=== PATIENT | female | born 1945 | race African-American/Black ===

== ENCOUNTER 2023-04-28 18:27 | Inpatient (IN) | payer OTHER, BC ==
[2023-04-28] MEDS ORDERED: ACETAMINOPHEN 1000 MG/100 ML BAG IVPB ONE (20:41)
[2023-04-28] MEDS ORDERED: morphine CARPU-JECT 4 MG/1 ML DISP.SYRIN IVPUSH ONE (20:42)
[2023-04-28] MEDS ORDERED: HEPARIN - 25,000 UNIT in SODIUM CHLORIDE 495 ML IV SCH (21:00)
[2023-04-28] MEDS ORDERED: morphine SULFATE 4 MG/ML VIAL ONE (21:09)
[2023-04-28] MEDS ORDERED: ACETAMINOPHEN INJECTION 100 ML IVPB ONE (21:09)
[2023-04-28 21:11] LABS: BASO % 0.8 % (0-2.0); EOS % 0.2 % (0-4.5); HEMATOCRIT 36.1 % (32.4-45.2); HEMOGLOBIN 11.5 GM/dL (10.7-15.3); LYMPH % 16.1 % (8-40); MCH 26.3 pg (25.7-33.7); MCHC 31.9 g/dl (32.0-36.0); MEAN CELL VOLUME 82.3 fl (80-96); MEAN PLT VOLUME 10.6 fl (7.5-11.1); MONO % 3.8 % (3.8-10.2); NEUT % 79.1 % (42.8-82.8); PLATELET COUNT 240 10^3/uL (134-434); RBC 4.39 M/mm3 (3.60-5.2); RDW 16.2 % (11.6-15.6); WHITE BLOOD COUNT 19.9 K/mm3 (4.0-10.0)
[2023-04-28 21:14] LABS: EPI CELLS 20 /uL (0-25.1); HYALINE CASTS 0 /uL (0-3.1); URINE APPEARANCE Error; URINE BACTERIA 105 /uL (0-1359); URINE BILIRUBIN NEGATIVE (NEGATIVE); URINE COLOR YELLOW; URINE GLUCOSE (UA) TRACE (NEGATIVE); URINE KETONE NEGATIVE (NEGATIVE); URINE LEUK ESTERASE TRACE (NEGATIVE); URINE NITRITE NEGATIVE (NEGATIVE); URINE PROTEIN 3+ (NEGATIVE); URINE RBC 15 /uL (0-23.9); URINE UROBILINOGEN 0.2 mg/dL (0.2-1.0); URINE WBC 99 /uL (0-25.8)
[2023-04-28 21:18] LABS: INR 1.05 (0.83-1.09); PROTHROMBIN TIME (PATIENT) 12.2 SEC (9.7-13.0)
[2023-04-28 21:20] LABS: ACTIVATED PTT 25.6 SECONDS (25.2-36.5)
[2023-04-28 21:30] LABS: POTASSIUM 5.7 mmol/L (3.5-5.1)
[2023-04-28 21:31] LABS: CALCIUM 9.5 mg/dL (8.5-10.1)
[2023-04-28 21:32] LABS: ALBUMIN 3.6 g/dl (3.4-5.0); BLOOD UREA NITROGEN 39.9 mg/dL (7-18)
[2023-04-28 21:37] LABS: BILIRUBIN,TOTAL 0.4 mg/dL (0.2-1); TOT PROT 7.2 g/dl (6.4-8.2)
[2023-04-28] MEDS ORDERED: HEPARIN INFUSION - 25,000 UNITS/500 ML INFUS.BAG IVPB ONE (21:43)
[2023-04-28] MEDS ORDERED: morphine SULFATE 4 MG/ML VIAL IM PRN (23:51)
[2023-04-28] MEDS ORDERED: ACETAMINOPHEN 1000 MG/100 ML BAG IVPB PRN (23:51)
[2023-04-29] MEDS ORDERED: morphine SULFATE 4 MG/ML VIAL IVPUSH PRN (03:54)
[2023-04-29] MEDS: morphine SULFATE 4 MG/ML VIAL IVPUSH PRN ×3 (04:00→21:35)
[2023-04-29 04:04] LABS: INR 1.06 (0.83-1.09); PROTHROMBIN TIME (PATIENT) 12.3 SEC (9.7-13.0)
[2023-04-29 04:07] LABS: ACTIVATED PTT 75.2 SECONDS (25.2-36.5)
[2023-04-29 04:57] LABS: BLOOD UREA NITROGEN 39.2 mg/dL (7-18); CALCIUM 9.6 mg/dL (8.5-10.1); CREATININE 1.9 mg/dL (0.55-1.3); POTASSIUM 4.4 mmol/L (3.5-5.1)
[2023-04-29] MEDS: INSULIN ASPART SLIDING SCALE (NOVOLOG) 1 VIAL SQ SCH ×4 (06:24→21:52)
[2023-04-29 06:43] LABS: HEMATOCRIT 30.6 % (32.4-45.2); HEMOGLOBIN 9.9 GM/dL (10.7-15.3); MCHC 32.5 g/dl (32.0-36.0); MEAN CELL VOLUME 83.1 fl (80-96); MEAN PLT VOLUME 10.7 fl (7.5-11.1); PLATELET COUNT 190 10^3/uL (134-434); RBC 3.68 M/mm3 (3.60-5.2); RDW 15.6 % (11.6-15.6); WHITE BLOOD COUNT 13.5 K/mm3 (4.0-10.0)
[2023-04-29 06:51] LABS: INR 1.11 (0.83-1.09); PROTHROMBIN TIME (PATIENT) 12.9 SEC (9.7-13.0)
[2023-04-29 06:54] LABS: ACTIVATED PTT 90.1 SECONDS (25.2-36.5)
[2023-04-29] MEDS ORDERED: LEVOTHYROXINE NA 100 MCG TABLET (FP) PO SCH (07:00)
[2023-04-29 07:04] LABS: POTASSIUM 3.9 mmol/L (3.5-5.1)
[2023-04-29 07:06] LABS: CALCIUM 8.7 mg/dL (8.5-10.1)
[2023-04-29 07:07] LABS: BLOOD UREA NITROGEN 37.4 mg/dL (7-18)
[2023-04-29 07:10] LABS: CREATININE 1.7 mg/dL (0.55-1.3)
[2023-04-29] MEDS: POLYETHYLENE GLYCOL (HEALTHYLAX) 3350 17 GM PACKET PO SCH ×3 (09:56→21:33)
[2023-04-29] MEDS: NICOTINE 21 MG/24 HOURS TOPICAL PATCH TD SCH ×2 (09:56→10:17)
[2023-04-29] MEDS ORDERED: NIFEdipine E.R 60 MG TABLET PO SCH (10:00)
[2023-04-29] MEDS ORDERED: LOSARTAN POTASSIUM 50 MG TABLET PO SCH (10:00)
[2023-04-29] MEDS ORDERED: ASPIRIN COATED 81 MG TABLET.EC PO SCH (10:00)
[2023-04-29] MEDS ORDERED: CEFTRIAXONE 1 GM in DEXTROSE 5%-WATER - 50 ML IVPB SCH (10:00)
[2023-04-29] MEDS ORDERED: HYDROCHLOROTHIAZIDE 25 MG TABLET (FP) PO SCH ×3 (10:00)
[2023-04-29] MEDS ORDERED: HEPARIN NA (PORCINE) 5,000 UNITS/ML 1ML VIAL ONE (14:33)
[2023-04-29] MEDS ORDERED: MIDAZOLAM HCL 2 MG/2 ML SINGLE DOSE VIAL ONE (16:47)
[2023-04-29] MEDS ORDERED: PROPOFOL 20 ML ONE (16:47)
[2023-04-29] MEDS ORDERED: ceFAZolin SODIUM 1 GM VIAL IVPB ONE (17:35)
[2023-04-29] MEDS ORDERED: LIDOCAINE HCL 1%, 10 MG/ML (20ML VIAL) NR ONE ×2 (17:35)
[2023-04-29] MEDS ORDERED: ONDANSETRON 4 MG/2 ML VIAL ONE (17:41)
[2023-04-29] MEDS ORDERED: LACTATED RINGERS SOLUTION 1,000 ML IV SCH ×2 (19:00→19:01)
[2023-04-29] MEDS ORDERED: ACETAMINOPHEN 1000 MG/100 ML BAG IVPB PRN (19:01)
[2023-04-29] MEDS: ENOXAPARIN NA (PORCINE) 80 MG/0.8 ML DISP.SYRIN SQ SCH ×2 (19:36→20:27)
[2023-04-29] MEDS ORDERED: ATORVASTATIN CA 10 MG TABLET (FP) PO SCH ×2 (22:00)
[2023-04-30] MEDS: INSULIN ASPART SLIDING SCALE (NOVOLOG) 1 VIAL SQ SCH ×3 (06:48→22:21)
[2023-04-30] MEDS: morphine SULFATE 4 MG/ML VIAL IVPUSH PRN ×2 (06:59→21:18)
[2023-04-30] MEDS ORDERED: LEVOTHYROXINE NA 100 MCG TABLET (FP) PO SCH (07:00)
[2023-04-30] MEDS: ENOXAPARIN NA (PORCINE) 80 MG/0.8 ML DISP.SYRIN SQ SCH (09:06)
[2023-04-30] MEDS: POLYETHYLENE GLYCOL (HEALTHYLAX) 3350 17 GM PACKET PO SCH ×2 (09:24→21:20)
[2023-04-30] MEDS ORDERED: ASPIRIN COATED 81 MG TABLET.EC PO SCH (10:00)
[2023-04-30] MEDS ORDERED: HYDROCHLOROTHIAZIDE 25 MG TABLET (FP) PO SCH (10:00)
[2023-04-30] MEDS ORDERED: NIFEdipine E.R 60 MG TABLET PO SCH (10:00)
[2023-04-30] MEDS ORDERED: NICOTINE 21 MG/24 HOURS TOPICAL PATCH TD SCH (10:00)
[2023-04-30] MEDS ORDERED: CEFTRIAXONE 1 GM in DEXTROSE 5%-WATER - 50 ML IVPB SCH (10:00)
[2023-04-30] MEDS ORDERED: LOSARTAN POTASSIUM 50 MG TABLET PO SCH (10:00)
[2023-04-30] MEDS ORDERED: ENOXAPARIN NA (PORCINE) 80 MG/0.8 ML DISP.SYRIN SQ SCH (10:00)
[2023-04-30] MEDS ORDERED: HEPARIN NA (PORCINE) 5,000 UNITS/ML 1ML VIAL SQ ONE (12:10)
[2023-04-30] MEDS ORDERED: HYDROmorphone HCl 2 MG/ML VIAL ONE (12:22)
[2023-04-30] MEDS ORDERED: SUCCINYLCHOLINE CHLORIDE 200 MG/10 ML SYRINGE ONE (12:23)
[2023-04-30] MEDS ORDERED: MIDAZOLAM HCL 2 MG/2 ML SINGLE DOSE VIAL ONE ×2 (12:23→13:09)
[2023-04-30] MEDS ORDERED: HEPARIN NA (PORCINE) 5,000 UNITS/ML 1ML VIAL ONE ×2 (12:26→15:28)
[2023-04-30] MEDS ORDERED: SODIUM CHLORIDE 0.9% P/F 10 ML VIAL IJ ONE ×3 (12:26→15:58)
[2023-04-30] MEDS ORDERED: ceFAZolin SODIUM 1 GM VIAL ONE (12:26)
[2023-04-30] MEDS ORDERED: ceFAZolin SODIUM 1 GM VIAL IVPB ONE (13:15)
[2023-04-30] MEDS ORDERED: ROCURONIUM BROMIDE 50 MG/5 ML SYRINGE ONE ×2 (13:23→15:13)
[2023-04-30] MEDS ORDERED: ESMOLOL HCL 100,000 MCG/10 ML VIAL ONE ×2 (13:27→13:29)
[2023-04-30] MEDS ORDERED: NITROGLYCERIN 50 MG/10 ML VIAL IVPB ONE (13:53)
[2023-04-30] MEDS ORDERED: MAGNESIUM SULF 50% (8.12 MEQ/2 ML-1 GM VIAL) ONE (14:58)
[2023-04-30] MEDS ORDERED: ALBUTEROL SO4 HFA INHALER IH ONE (15:02)
[2023-04-30] MEDS ORDERED: hydrALAZINE HCL 20 MG/ML VIAL ONE (15:57)
[2023-04-30] MEDS ORDERED: SUGAMMADEX SODIUM 200 MG/2 ML VIAL ONE (15:57)
[2023-04-30] MEDS ORDERED: POVIDONE-IODINE OINTMENT 10% - 28.4 GM TUBE ONE (16:08)
[2023-04-30] MEDS ORDERED: ONDANSETRON 4 MG/2 ML VIAL IVPUSH PRN ×2 (16:10→16:36)
[2023-04-30] MEDS ORDERED: PROMETHAZINE HCL 25 MG/1 ML VIAL IVPB PRN ×2 (16:10→16:36)
[2023-04-30] MEDS ORDERED: LACTATED RINGERS SOLUTION 1,000 ML IV SCH ×2 (16:15→16:36)
[2023-04-30] MEDS ORDERED: ACETAMINOPHEN 1000 MG/100 ML BAG IVPB ONE (16:33)
[2023-04-30] MEDS ORDERED: ACETAMINOPHEN INJECTION 100 ML IVPB ONE (17:08)
[2023-04-30] MEDS: APIXABAN 5 MG TABLET PO SCH ×2 (17:54→21:20)
[2023-04-30] MEDS: LACTATED RINGERS SOLUTION 1,000 ML IV SCH (18:33)
[2023-04-30] MEDS: ATORVASTATIN CA 10 MG TABLET (FP) PO SCH (21:19)
[2023-04-30] MEDS ORDERED: MUPIROCIN 2% TOPICAL OINTMENT FOR DECOLONIZATION NS SCH (22:00)
[2023-04-30] MEDS ORDERED: CHLORHEXIDINE GLUCONATE 4% CLEANSER FOR DECOLONIZATION TP SCH (22:00)
[2023-05-01] MEDS ORDERED: morphine SULFATE 4 MG/ML VIAL IVPUSH ONE (00:09)
[2023-05-01] MEDS ORDERED: ACETAMINOPHEN 1000 MG/100 ML BAG IVPB ONE (00:09)
[2023-05-01] MEDS: INSULIN ASPART SLIDING SCALE (NOVOLOG) 1 VIAL SQ SCH ×4 (07:00→22:28)
[2023-05-01] MEDS: INSULIN (LEVEMIR) 100 UNITS/ML UNITS SQ SCH (07:00)
[2023-05-01 07:08] LABS: HEMATOCRIT 27.8 % (32.4-45.2); MCH 27.1 pg (25.7-33.7); MCHC 32.3 g/dl (32.0-36.0); MEAN CELL VOLUME 83.9 fl (80-96); MEAN PLT VOLUME 10.8 fl (7.5-11.1); PLATELET COUNT 165 10^3/uL (134-434); RBC 3.31 M/mm3 (3.60-5.2); RDW 15.8 % (11.6-15.6)
[2023-05-01 07:10] LABS: WHITE BLOOD COUNT 35.2 K/mm3 (4.0-10.0)
[2023-05-01 07:16] LABS: POTASSIUM 4.3 mmol/L (3.5-5.1)
[2023-05-01 07:18] LABS: BLOOD UREA NITROGEN 26.7 mg/dL (7-18); CALCIUM 8.5 mg/dL (8.5-10.1); MAGNESIUM 1.9 mg/dL (1.8-2.4)
[2023-05-01 07:21] LABS: PHOSPHOROUS 4.4 mg/dL (2.5-4.9)
[2023-05-01 07:22] LABS: CREATININE 1.7 mg/dL (0.55-1.3)
[2023-05-01 07:23] LABS: BILIRUBIN,TOTAL 0.7 mg/dL (0.2-1); TOT PROT 5.4 g/dl (6.4-8.2)
[2023-05-01 07:29] LABS: ALBUMIN 2.6 g/dl (3.4-5.0)
[2023-05-01] MEDS: morphine SULFATE 4 MG/ML VIAL IVPUSH PRN ×3 (07:33→21:26)
[2023-05-01 08:52] LABS: ANISOCYTOSIS 0; MACROCYTOSIS 0
[2023-05-01] MEDS: LOSARTAN POTASSIUM 50 MG TABLET PO SCH (09:03)
[2023-05-01] MEDS: LEVOTHYROXINE NA 100 MCG TABLET (FP) PO SCH (09:04)
[2023-05-01] MEDS: APIXABAN 5 MG TABLET PO SCH ×2 (09:04→21:25)
[2023-05-01] MEDS: POLYETHYLENE GLYCOL (HEALTHYLAX) 3350 17 GM PACKET PO SCH ×2 (09:05→21:27)
[2023-05-01] MEDS: ASPIRIN COATED 81 MG TABLET.EC PO SCH (09:05)
[2023-05-01] MEDS ORDERED: CEFTRIAXONE 1 GM in DEXTROSE 5%-WATER - 50 ML IVPB SCH (10:00)
[2023-05-01] MEDS ORDERED: NIFEdipine E.R 60 MG TABLET PO SCH (10:00)
[2023-05-01] MEDS: CEFEPIME 1 GM in DEXTROSE 5%-WATER 100 ML IVPB SCH ×2 (12:42→21:25)
[2023-05-01] MEDS: VANCOMYCIN/WATER FOR INJ (PEG) 1,000 MG/200 ML BAG IVPB SCH (12:43)
[2023-05-01] MEDS ORDERED: hydrALAZINE HCL 20 MG/ML VIAL IVPUSH ONE (12:45)
[2023-05-01] MEDS ORDERED: NIFEdipine E.R. 30 MG TABLET PO ONE (13:16)
[2023-05-01] MEDS: GABAPENTIN 100 MG CAPSULE PO SCH ×2 (15:26→21:25)
[2023-05-01] MEDS: NICOTINE 21 MG/24 HOURS TOPICAL PATCH TD SCH (15:27)
[2023-05-01] MEDS ORDERED: INSULIN (NOVOLOG) ASPART 100 UNITS/ML 10ML VIAL ONE (17:34)
[2023-05-01] MEDS: oxyCODONE HCL 5 MG TABLET PO PRN ×2 (17:35→23:03)
[2023-05-01] MEDS: LACTATED RINGERS SOLUTION 1,000 ML IV SCH (17:51)
[2023-05-01] MEDS: ATORVASTATIN CA 10 MG TABLET (FP) PO SCH (21:25)
[2023-05-02] MEDS: GABAPENTIN 100 MG CAPSULE PO SCH ×3 (06:36→21:57)
[2023-05-02] MEDS: INSULIN (LEVEMIR) 100 UNITS/ML UNITS SQ SCH (06:36)
[2023-05-02] MEDS: INSULIN ASPART SLIDING SCALE (NOVOLOG) 1 VIAL SQ SCH ×4 (06:37→22:03)
[2023-05-02] MEDS: LEVOTHYROXINE NA 100 MCG TABLET (FP) PO SCH (06:37)
[2023-05-02 07:29] LABS: HEMATOCRIT 26.4 % (32.4-45.2); HEMOGLOBIN 8.3 GM/dL (10.7-15.3); MCH 26.3 pg (25.7-33.7); MCHC 31.5 g/dl (32.0-36.0); MEAN CELL VOLUME 83.3 fl (80-96); MEAN PLT VOLUME 10.8 fl (7.5-11.1); PLATELET COUNT 135 10^3/uL (134-434); RBC 3.17 M/mm3 (3.60-5.2); RDW 15.6 % (11.6-15.6)
[2023-05-02 07:54] LABS: POTASSIUM 3.9 mmol/L (3.5-5.1)
[2023-05-02 08:04] LABS: WHITE BLOOD COUNT 31.3 K/mm3 (4.0-10.0)
[2023-05-02 08:06] LABS: EPI CELLS 17 /uL (0-25.1); HYALINE CASTS 1 /uL (0-3.1); URINE APPEARANCE CLOUDY; URINE BACTERIA 19 /uL (0-1359); URINE BILIRUBIN NEGATIVE (NEGATIVE); URINE COLOR YELLOW; URINE GLUCOSE (UA) NEGATIVE (NEGATIVE); URINE KETONE TRACE (NEGATIVE); URINE LEUK ESTERASE 2+ (NEGATIVE); URINE NITRITE NEGATIVE (NEGATIVE); URINE PROTEIN 2+ (NEGATIVE); URINE RBC 74 /uL (0-23.9); URINE UROBILINOGEN 0.2 mg/dL (0.2-1.0); URINE WBC 1647 /uL (0-25.8)
[2023-05-02 08:09] LABS: ALBUMIN 2.4 g/dl (3.4-5.0); CALCIUM 8.8 mg/dL (8.5-10.1)
[2023-05-02 08:10] LABS: TOT PROT 5.3 g/dl (6.4-8.2)
[2023-05-02 08:11] LABS: BILIRUBIN,TOTAL 0.7 mg/dL (0.2-1)
[2023-05-02 08:12] LABS: CREATININE 1.9 mg/dL (0.55-1.3)
[2023-05-02 09:03] LABS: ANISOCYTOSIS 0; MACROCYTOSIS 0
[2023-05-02] MEDS: ASPIRIN COATED 81 MG TABLET.EC PO SCH (09:56)
[2023-05-02] MEDS: APIXABAN 5 MG TABLET PO SCH ×2 (09:56→21:57)
[2023-05-02] MEDS: NIFEdipine E.R. 90 MG TABLET PO SCH (09:56)
[2023-05-02] MEDS: LOSARTAN POTASSIUM 50 MG TABLET PO SCH (09:56)
[2023-05-02] MEDS: CEFEPIME 1 GM in DEXTROSE 5%-WATER 100 ML IVPB SCH ×2 (09:57→21:57)
[2023-05-02] MEDS: POLYETHYLENE GLYCOL (HEALTHYLAX) 3350 17 GM PACKET PO SCH ×3 (09:58→22:34)
[2023-05-02] MEDS: NICOTINE 21 MG/24 HOURS TOPICAL PATCH TD SCH (11:34)
[2023-05-02] MEDS: VANCOMYCIN/WATER FOR INJ (PEG) 1,000 MG/200 ML BAG IVPB SCH (13:20)
[2023-05-02] MEDS ORDERED: ACETAMINOPHEN 325 MG TABLET (FP) PO PRN (13:27)
[2023-05-02] MEDS ORDERED: LACTATED RINGERS SOLUTION 1,000 ML/1,000 ML INFUS.BAG IV SCH (14:00)
[2023-05-02 14:20] VITALS: BMI 29.0
[2023-05-02] MEDS: morphine SULFATE 4 MG/ML VIAL IVPUSH PRN (20:05)
[2023-05-02] MEDS: ATORVASTATIN CA 10 MG TABLET (FP) PO SCH (21:57)
[2023-05-02] MEDS: oxyCODONE HCL 5 MG TABLET PO PRN (21:59)
[2023-05-02] MEDS ORDERED: INSULIN (NOVOLOG) ASPART 100 UNITS/ML 10ML VIAL ONE (21:59)
[2023-05-02] MEDS ORDERED: INSULIN (LEVEMIR) 100 UNITS/ML UNITS SQ SCH ×2 (22:00)
[2023-05-03] MEDS: INSULIN (LEVEMIR) 100 UNITS/ML UNITS SQ SCH ×2 (06:53→22:31)
[2023-05-03] MEDS: LEVOTHYROXINE NA 100 MCG TABLET (FP) PO SCH (06:53)
[2023-05-03] MEDS: GABAPENTIN 100 MG CAPSULE PO SCH ×3 (06:53→21:27)
[2023-05-03] MEDS: INSULIN ASPART SLIDING SCALE (NOVOLOG) 1 VIAL SQ SCH ×5 (06:53→22:32)
[2023-05-03] MEDS: oxyCODONE HCL 5 MG TABLET PO PRN (08:56)
[2023-05-03] MEDS ORDERED: oxyCODONE HCL 5 MG TABLET PO PRN (10:06)
[2023-05-03] MEDS: ASPIRIN COATED 81 MG TABLET.EC PO SCH (11:22)
[2023-05-03] MEDS: LOSARTAN POTASSIUM 50 MG TABLET PO SCH (11:22)
[2023-05-03] MEDS: APIXABAN 5 MG TABLET PO SCH ×2 (11:22→21:26)
[2023-05-03] MEDS: NIFEdipine E.R. 90 MG TABLET PO SCH (11:22)
[2023-05-03] MEDS: NICOTINE 21 MG/24 HOURS TOPICAL PATCH TD SCH (11:23)
[2023-05-03] MEDS: POLYETHYLENE GLYCOL (HEALTHYLAX) 3350 17 GM PACKET PO SCH ×2 (11:23→21:26)
[2023-05-03] MEDS: VANCOMYCIN/WATER FOR INJ (PEG) 1,000 MG/200 ML BAG IVPB SCH (11:36)
[2023-05-03] MEDS: morphine SULFATE 4 MG/ML VIAL IVPUSH PRN ×2 (13:23→21:25)
[2023-05-03] MEDS: BENZOCAINE/MENTH/CETYLPYRD CL 1 EACH LOZENGE MM PRN (13:24)
[2023-05-03 13:33] LABS: HEMATOCRIT 23.2 % (32.4-45.2); HEMOGLOBIN 7.4 GM/dL (10.7-15.3); MCH 26.5 pg (25.7-33.7); MEAN PLT VOLUME 10.7 fl (7.5-11.1); PLATELET COUNT 163 10^3/uL (134-434); RDW 15.1 % (11.6-15.6); RETICULOCYTES 1.75 % (0.5-1.5); WHITE BLOOD COUNT 27.8 K/mm3 (4.0-10.0)
[2023-05-03 14:00] LABS: POTASSIUM 3.8 mmol/L (3.5-5.1)
[2023-05-03 14:01] LABS: BLOOD UREA NITROGEN 40.8 mg/dL (7-18); CALCIUM 8.7 mg/dL (8.5-10.1)
[2023-05-03 14:04] LABS: ALBUMIN 2.1 g/dl (3.4-5.0); CREATININE 1.9 mg/dL (0.55-1.3)
[2023-05-03 14:07] LABS: BILIRUBIN,DIRECT 0.2 mg/dL (0.0-0.2)
[2023-05-03 14:09] LABS: BILIRUBIN,TOTAL 0.4 mg/dL (0.2-1)
[2023-05-03] MEDS: FLUTICASONE/UMECLIDIN/VILANTER(200-62.5-25 TRELEGY ELLIPTA) INAHLER IH SCH ×2 (15:37→15:38)
[2023-05-03] MEDS: CEFEPIME 1 GM in DEXTROSE 5%-WATER 100 ML IVPB SCH ×2 (15:37→21:26)
[2023-05-03] MEDS: ATORVASTATIN CA 10 MG TABLET (FP) PO SCH (21:27)
[2023-05-04] MEDS: INSULIN (LEVEMIR) 100 UNITS/ML UNITS SQ SCH ×2 (06:09→22:27)
[2023-05-04] MEDS: LEVOTHYROXINE NA 100 MCG TABLET (FP) PO SCH (06:09)
[2023-05-04] MEDS: GABAPENTIN 100 MG CAPSULE PO SCH ×3 (06:09→22:37)
[2023-05-04] MEDS: morphine SULFATE 4 MG/ML VIAL IVPUSH PRN ×2 (06:09→22:27)
[2023-05-04] MEDS: INSULIN ASPART SLIDING SCALE (NOVOLOG) 1 VIAL SQ SCH ×4 (06:26→22:38)
[2023-05-04] MEDS: LOSARTAN POTASSIUM 50 MG TABLET PO SCH (09:17)
[2023-05-04] MEDS: NIFEdipine E.R. 90 MG TABLET PO SCH (09:18)
[2023-05-04] MEDS: CEFEPIME 1 GM in DEXTROSE 5%-WATER 100 ML IVPB SCH ×2 (09:18→22:26)
[2023-05-04] MEDS: APIXABAN 5 MG TABLET PO SCH ×2 (09:18→22:26)
[2023-05-04] MEDS: POLYETHYLENE GLYCOL (HEALTHYLAX) 3350 17 GM PACKET PO SCH ×2 (09:18→22:25)
[2023-05-04] MEDS: NICOTINE 21 MG/24 HOURS TOPICAL PATCH TD SCH (09:18)
[2023-05-04] MEDS: ASPIRIN COATED 81 MG TABLET.EC PO SCH (09:18)
[2023-05-04 11:21] LABS: HEMATOCRIT 21.4 % (32.4-45.2); MCH 26.4 pg (25.7-33.7); MCHC 31.9 g/dl (32.0-36.0); MEAN CELL VOLUME 82.8 fl (80-96); MEAN PLT VOLUME 10.3 fl (7.5-11.1); PLATELET COUNT 195 10^3/uL (134-434); RBC 2.59 M/mm3 (3.60-5.2); RDW 15.4 % (11.6-15.6); WHITE BLOOD COUNT 21.9 K/mm3 (4.0-10.0)
[2023-05-04 11:25] LABS: HEMOGLOBIN 6.8 GM/dL (10.7-15.3)
[2023-05-04 11:43] LABS: POTASSIUM 4.2 mmol/L (3.5-5.1)
[2023-05-04 11:45] LABS: CALCIUM 9.5 mg/dL (8.5-10.1)
[2023-05-04 11:46] LABS: BLOOD UREA NITROGEN 42.3 mg/dL (7-18)
[2023-05-04 11:49] LABS: CREATININE 1.7 mg/dL (0.55-1.3)
[2023-05-04 11:50] LABS: BILIRUBIN,TOTAL 0.5 mg/dL (0.2-1)
[2023-05-04 11:52] LABS: ANISOCYTOSIS 0; HELMET CELLS 0; HOWELL-JOLLY BODIES 0; MACROCYTOSIS 0; OVALOCYTE 0; ROULEAU 0; SICKELED CELLS 0; TARGET CELLS 0; TEAR DROP CELLS 0; TOT PROT 4.9 g/dl (6.4-8.2); TOXIC GRANULATION 0
[2023-05-04] MEDS: VANCOMYCIN/WATER FOR INJ (PEG) 1,000 MG/200 ML BAG IVPB SCH (13:22)
[2023-05-04] MEDS: FLUTICASONE/UMECLIDIN/VILANTER(200-62.5-25 TRELEGY ELLIPTA) INAHLER IH SCH (14:36)
[2023-05-04] MEDS: ATORVASTATIN CA 10 MG TABLET (FP) PO SCH (22:26)
[2023-05-05] MEDS: INSULIN (LEVEMIR) 100 UNITS/ML UNITS SQ SCH ×2 (06:52→22:36)
[2023-05-05] MEDS: GABAPENTIN 100 MG CAPSULE PO SCH ×3 (06:53→22:07)
[2023-05-05] MEDS: morphine SULFATE 4 MG/ML VIAL IVPUSH PRN (06:53)
[2023-05-05] MEDS: LEVOTHYROXINE NA 100 MCG TABLET (FP) PO SCH (06:53)
[2023-05-05] MEDS: INSULIN ASPART SLIDING SCALE (NOVOLOG) 1 VIAL SQ SCH ×4 (07:01→22:35)
[2023-05-05 09:14] LABS: BASO % 0.3 % (0-2.0); EOS % 1.5 % (0-4.5); HEMATOCRIT 26.3 % (32.4-45.2); HEMOGLOBIN 8.4 GM/dL (10.7-15.3); LYMPH % 13.2 % (8-40); MCH 27.1 pg (25.7-33.7); MCHC 32.1 g/dl (32.0-36.0); MEAN CELL VOLUME 84.5 fl (80-96); MEAN PLT VOLUME 9.8 fl (7.5-11.1); MONO % 8.2 % (3.8-10.2); NEUT % 76.8 % (42.8-82.8); PLATELET COUNT 220 10^3/uL (134-434); RBC 3.11 M/mm3 (3.60-5.2); WHITE BLOOD COUNT 18.7 K/mm3 (4.0-10.0)
[2023-05-05] MEDS: APIXABAN 5 MG TABLET PO SCH ×2 (09:21→22:07)
[2023-05-05] MEDS: NIFEdipine E.R. 90 MG TABLET PO SCH (09:21)
[2023-05-05] MEDS: LOSARTAN POTASSIUM 50 MG TABLET PO SCH (09:21)
[2023-05-05] MEDS: POLYETHYLENE GLYCOL (HEALTHYLAX) 3350 17 GM PACKET PO SCH ×2 (09:21→22:07)
[2023-05-05] MEDS: NICOTINE 21 MG/24 HOURS TOPICAL PATCH TD SCH (09:21)
[2023-05-05] MEDS: CEFEPIME 1 GM in DEXTROSE 5%-WATER 100 ML IVPB SCH ×2 (09:22→22:36)
[2023-05-05] MEDS: FLUTICASONE/UMECLIDIN/VILANTER(200-62.5-25 TRELEGY ELLIPTA) INAHLER IH SCH (09:28)
[2023-05-05 10:48] LABS: BILIRUBIN,TOTAL 0.8 mg/dL (0.2-1); BLOOD UREA NITROGEN 57.8 mg/dL (7-18); CALCIUM 9.3 mg/dL (8.5-10.1); CREATININE 1.8 mg/dL (0.55-1.3); POTASSIUM 4.2 mmol/L (3.5-5.1); TOT PROT 4.9 g/dl (6.4-8.2)
[2023-05-05] MEDS: ASPIRIN COATED 81 MG TABLET.EC PO SCH (12:00)
[2023-05-05] MEDS: VANCOMYCIN/WATER FOR INJ (PEG) 1,000 MG/200 ML BAG IVPB SCH (12:23)
[2023-05-05] MEDS: ATORVASTATIN CA 10 MG TABLET (FP) PO SCH (22:07)
[2023-05-05] MEDS: ACETAMINOPHEN 1000 MG/100 ML BAG IVPB PRN (22:07)
[2023-05-06] MEDS: LEVOTHYROXINE NA 100 MCG TABLET (FP) PO SCH (06:04)
[2023-05-06] MEDS: GABAPENTIN 100 MG CAPSULE PO SCH ×3 (06:04→21:59)
[2023-05-06] MEDS: INSULIN ASPART SLIDING SCALE (NOVOLOG) 1 VIAL SQ SCH ×4 (06:26→22:03)
[2023-05-06] MEDS: INSULIN (LEVEMIR) 100 UNITS/ML UNITS SQ SCH ×2 (06:26→22:03)
[2023-05-06] MEDS: ACETAMINOPHEN 1000 MG/100 ML BAG IVPB PRN ×2 (06:54→17:07)
[2023-05-06 08:15] LABS: POTASSIUM 4.4 mmol/L (3.5-5.1)
[2023-05-06 08:18] LABS: CALCIUM 9.4 mg/dL (8.5-10.1)
[2023-05-06 08:19] LABS: BLOOD UREA NITROGEN 51.6 mg/dL (7-18)
[2023-05-06 08:21] LABS: BILIRUBIN,DIRECT 0.3 mg/dL (0.0-0.2)
[2023-05-06 08:22] LABS: CREATININE 1.6 mg/dL (0.55-1.3)
[2023-05-06 08:23] LABS: BILIRUBIN,TOTAL 0.9 mg/dL (0.2-1)
[2023-05-06 08:24] LABS: TOT PROT 5.4 g/dl (6.4-8.2)
[2023-05-06 08:40] LABS: ALBUMIN 2.1 g/dl (3.4-5.0)
[2023-05-06] MEDS: APIXABAN 5 MG TABLET PO SCH ×2 (10:00→21:59)
[2023-05-06] MEDS: ASPIRIN COATED 81 MG TABLET.EC PO SCH (10:00)
[2023-05-06] MEDS: CEFEPIME 1 GM in DEXTROSE 5%-WATER 100 ML IVPB SCH ×2 (10:00→22:00)
[2023-05-06] MEDS: POLYETHYLENE GLYCOL (HEALTHYLAX) 3350 17 GM PACKET PO SCH ×2 (10:01→21:59)
[2023-05-06] MEDS: LOSARTAN POTASSIUM 50 MG TABLET PO SCH (10:01)
[2023-05-06] MEDS: NICOTINE 21 MG/24 HOURS TOPICAL PATCH TD SCH (10:01)
[2023-05-06] MEDS: NIFEdipine E.R. 90 MG TABLET PO SCH (10:01)
[2023-05-06] MEDS: TAMSULOSIN HCL 0.4 MG CAP PO SCH (10:03)
[2023-05-06 12:29] LABS: HEMATOCRIT 29.9 % (32.4-45.2); HEMOGLOBIN 9.6 GM/dL (10.7-15.3); MCH 27.4 pg (25.7-33.7); MCHC 32.2 g/dl (32.0-36.0); MEAN PLT VOLUME 9.6 fl (7.5-11.1); PLATELET COUNT 311 10^3/uL (134-434); RBC 3.51 M/mm3 (3.60-5.2); RDW 15.8 % (11.6-15.6); WHITE BLOOD COUNT 20.6 K/mm3 (4.0-10.0)
[2023-05-06] MEDS: FLUTICASONE/UMECLIDIN/VILANTER(200-62.5-25 TRELEGY ELLIPTA) INAHLER IH SCH (12:46)
[2023-05-06] MEDS: ATORVASTATIN CA 10 MG TABLET (FP) PO SCH (21:59)
[2023-05-07] MEDS ORDERED: traMADol HCL 50 MG TABLET PO PRN (03:09)
[2023-05-07] MEDS: LEVOTHYROXINE NA 100 MCG TABLET (FP) PO SCH (06:23)
[2023-05-07] MEDS: GABAPENTIN 100 MG CAPSULE PO SCH ×3 (06:23→22:40)
[2023-05-07] MEDS: INSULIN ASPART SLIDING SCALE (NOVOLOG) 1 VIAL SQ SCH ×4 (06:25→22:41)
[2023-05-07] MEDS: INSULIN (LEVEMIR) 100 UNITS/ML UNITS SQ SCH ×2 (06:25→22:40)
[2023-05-07 08:30] LABS: HEMATOCRIT 26.2 % (32.4-45.2); HEMOGLOBIN 8.4 GM/dL (10.7-15.3); MCH 27.5 pg (25.7-33.7); MCHC 32.1 g/dl (32.0-36.0); MEAN CELL VOLUME 85.6 fl (80-96); MEAN PLT VOLUME 9.4 fl (7.5-11.1); PLATELET COUNT 329 10^3/uL (134-434); RBC 3.06 M/mm3 (3.60-5.2); RDW 15.9 % (11.6-15.6); WHITE BLOOD COUNT 21.5 K/mm3 (4.0-10.0)
[2023-05-07 08:49] LABS: POTASSIUM 4.4 mmol/L (3.5-5.1)
[2023-05-07 08:52] LABS: BLOOD UREA NITROGEN 50.3 mg/dL (7-18)
[2023-05-07 08:55] LABS: CREATININE 1.5 mg/dL (0.55-1.3)
[2023-05-07] MEDS: CEFEPIME 1 GM in DEXTROSE 5%-WATER 100 ML IVPB SCH (10:03)
[2023-05-07] MEDS: LOSARTAN POTASSIUM 50 MG TABLET PO SCH (10:03)
[2023-05-07] MEDS: POLYETHYLENE GLYCOL (HEALTHYLAX) 3350 17 GM PACKET PO SCH ×2 (10:03→22:40)
[2023-05-07] MEDS: NIFEdipine E.R. 90 MG TABLET PO SCH (10:03)
[2023-05-07] MEDS: ASPIRIN COATED 81 MG TABLET.EC PO SCH (10:04)
[2023-05-07] MEDS: TAMSULOSIN HCL 0.4 MG CAP PO SCH (10:04)
[2023-05-07] MEDS: APIXABAN 5 MG TABLET PO SCH ×2 (10:04→22:40)
[2023-05-07] MEDS: NICOTINE 21 MG/24 HOURS TOPICAL PATCH TD SCH (10:04)
[2023-05-07] MEDS: FLUTICASONE/UMECLIDIN/VILANTER(200-62.5-25 TRELEGY ELLIPTA) INAHLER IH SCH (10:05)
[2023-05-07] MEDS ORDERED: INSULIN (NOVOLOG) ASPART 100 UNITS/ML 10ML VIAL ONE ×2 (16:57→16:59)
[2023-05-07] MEDS ORDERED: ACETAMINOPHEN 1000 MG/100 ML BAG IVPB PRN (18:30)
[2023-05-07] MEDS ORDERED: LINEZOLID 600 MG TABLET (RESTRICTED TO ID) PO SCH (22:00)
[2023-05-07] MEDS: ATORVASTATIN CA 10 MG TABLET (FP) PO SCH (22:40)
[2023-05-07] MEDS: LINEZOLID 600 MG TABLET (RESTRICTED TO ID) PO SCH (22:41)
[2023-05-08] MEDS: INSULIN ASPART SLIDING SCALE (NOVOLOG) 1 VIAL SQ SCH ×4 (06:28→22:00)
[2023-05-08] MEDS: LEVOTHYROXINE NA 100 MCG TABLET (FP) PO SCH (06:28)
[2023-05-08] MEDS: GABAPENTIN 100 MG CAPSULE PO SCH ×3 (06:28→22:02)
[2023-05-08] MEDS: INSULIN (LEVEMIR) 100 UNITS/ML UNITS SQ SCH ×2 (06:29→22:01)
[2023-05-08] MEDS: NICOTINE 21 MG/24 HOURS TOPICAL PATCH TD SCH (09:09)
[2023-05-08] MEDS: APIXABAN 5 MG TABLET PO SCH ×2 (09:09→22:02)
[2023-05-08] MEDS: LOSARTAN POTASSIUM 50 MG TABLET PO SCH (09:09)
[2023-05-08] MEDS: LINEZOLID 600 MG TABLET (RESTRICTED TO ID) PO SCH (09:09)
[2023-05-08] MEDS: ASPIRIN COATED 81 MG TABLET.EC PO SCH (09:09)
[2023-05-08] MEDS: TAMSULOSIN HCL 0.4 MG CAP PO SCH (09:09)
[2023-05-08] MEDS: POLYETHYLENE GLYCOL (HEALTHYLAX) 3350 17 GM PACKET PO SCH ×2 (09:09→22:02)
[2023-05-08] MEDS: NIFEdipine E.R. 90 MG TABLET PO SCH (09:09)
[2023-05-08] MEDS: FLUTICASONE/UMECLIDIN/VILANTER(200-62.5-25 TRELEGY ELLIPTA) INAHLER IH SCH (09:10)
[2023-05-08 09:42] LABS: HEMATOCRIT 28.1 % (32.4-45.2); HEMOGLOBIN 8.9 GM/dL (10.7-15.3); MCH 27.1 pg (25.7-33.7); MCHC 31.8 g/dl (32.0-36.0); MEAN CELL VOLUME 85.3 fl (80-96); MEAN PLT VOLUME 9.6 fl (7.5-11.1); PLATELET COUNT 385 10^3/uL (134-434); RBC 3.29 M/mm3 (3.60-5.2); RDW 16.1 % (11.6-15.6)
[2023-05-08 10:07] LABS: POTASSIUM 5.1 mmol/L (3.5-5.1)
[2023-05-08 10:09] LABS: ALBUMIN 2.1 g/dl (3.4-5.0); CALCIUM 9.4 mg/dL (8.5-10.1)
[2023-05-08 10:10] LABS: BLOOD UREA NITROGEN 46.6 mg/dL (7-18)
[2023-05-08 10:13] LABS: CREATININE 1.5 mg/dL (0.55-1.3)
[2023-05-08 10:14] LABS: BILIRUBIN,TOTAL 0.4 mg/dL (0.2-1); TOT PROT 5.5 g/dl (6.4-8.2)
[2023-05-08 11:52] LABS: ANISOCYTOSIS 2+; MACROCYTOSIS 0
[2023-05-08] MEDS ORDERED: morphine SULFATE IMMEDIATE RELEASE 30 MG TAB PO PRN (12:36)
[2023-05-08] MEDS: oxyCODONE HCL 5 MG TABLET PO PRN (13:24)
[2023-05-08] MEDS ORDERED: ACETAMINOPHEN 500 MG TABLET (FP) PO SCH (14:45)
[2023-05-08] MEDS: ACETAMINOPHEN 500 MG TABLET (FP) PO SCH ×2 (17:46→22:02)
[2023-05-08] MEDS: ATORVASTATIN CA 10 MG TABLET (FP) PO SCH (22:02)
[2023-05-09] MEDS: ACETAMINOPHEN 500 MG TABLET (FP) PO SCH ×3 (05:26→22:35)
[2023-05-09] MEDS: GABAPENTIN 100 MG CAPSULE PO SCH ×3 (05:27→22:35)
[2023-05-09] MEDS ORDERED: INSULIN (NOVOLOG) ASPART 100 UNITS/ML 10ML VIAL ONE ×2 (06:07→10:57)
[2023-05-09] MEDS: LEVOTHYROXINE NA 100 MCG TABLET (FP) PO SCH (06:14)
[2023-05-09] MEDS: INSULIN ASPART SLIDING SCALE (NOVOLOG) 1 VIAL SQ SCH ×4 (06:16→22:44)
[2023-05-09] MEDS: INSULIN (LEVEMIR) 100 UNITS/ML UNITS SQ SCH ×2 (06:16→22:36)
[2023-05-09 08:45] LABS: HEMATOCRIT 27.9 % (32.4-45.2); HEMOGLOBIN 8.9 GM/dL (10.7-15.3); MCH 27.4 pg (25.7-33.7); MCHC 31.9 g/dl (32.0-36.0); MEAN CELL VOLUME 85.9 fl (80-96); MEAN PLT VOLUME 9.2 fl (7.5-11.1); PLATELET COUNT 389 10^3/uL (134-434); RBC 3.25 M/mm3 (3.60-5.2); RDW 16.1 % (11.6-15.6); WHITE BLOOD COUNT 20.7 K/mm3 (4.0-10.0)
[2023-05-09 09:31] LABS: ANISOCYTOSIS 1+; MACROCYTOSIS 1+
[2023-05-09] MEDS: APIXABAN 5 MG TABLET PO SCH ×2 (10:07→22:36)
[2023-05-09] MEDS: LOSARTAN POTASSIUM 50 MG TABLET PO SCH (10:07)
[2023-05-09] MEDS: NIFEdipine E.R. 90 MG TABLET PO SCH (10:08)
[2023-05-09] MEDS: NICOTINE 21 MG/24 HOURS TOPICAL PATCH TD SCH (10:08)
[2023-05-09] MEDS: TAMSULOSIN HCL 0.4 MG CAP PO SCH (10:08)
[2023-05-09] MEDS: POLYETHYLENE GLYCOL (HEALTHYLAX) 3350 17 GM PACKET PO SCH ×2 (10:08→22:36)
[2023-05-09] MEDS: ASPIRIN COATED 81 MG TABLET.EC PO SCH (10:08)
[2023-05-09] MEDS: FLUTICASONE/UMECLIDIN/VILANTER(200-62.5-25 TRELEGY ELLIPTA) INAHLER IH SCH (10:09)
[2023-05-09] MEDS ORDERED: INSULIN (NOVOLOG MIX 70/30) 100 UNITS/ML MDV SQ ONE (10:56)
[2023-05-09] MEDS: oxyCODONE HCL 5 MG TABLET PO PRN (11:11)
[2023-05-09 11:19] LABS: POTASSIUM 4.9 mmol/L (3.5-5.1)
[2023-05-09 11:23] LABS: CALCIUM 9.5 mg/dL (8.5-10.1)
[2023-05-09 11:24] LABS: BLOOD UREA NITROGEN 42.1 mg/dL (7-18); CREATININE 1.3 mg/dL (0.55-1.3); MAGNESIUM 2.3 mg/dL (1.8-2.4)
[2023-05-09 11:25] LABS: TOT PROT 5.2 g/dl (6.4-8.2)
[2023-05-09 11:26] LABS: BILIRUBIN,TOTAL 0.4 mg/dL (0.2-1)
[2023-05-09] MEDS ORDERED: ALBUTEROL SO4 2.5/IPRATROPIUM 0.5 INH SOL 3 ML VIAL.NEB. NEB PRN (11:35)
[2023-05-09] MEDS ORDERED: oxyCODONE HCL 5 MG TABLET PO ONE (21:01)
[2023-05-09] MEDS: ATORVASTATIN CA 10 MG TABLET (FP) PO SCH (22:35)
[2023-05-09] MEDS: BENZOCAINE/MENTH/CETYLPYRD CL 1 EACH LOZENGE MM PRN (22:38)
[2023-05-10] MEDS: ACETAMINOPHEN 500 MG TABLET (FP) PO SCH ×3 (06:39→21:22)
[2023-05-10] MEDS: GABAPENTIN 100 MG CAPSULE PO SCH ×3 (06:39→21:23)
[2023-05-10] MEDS: LEVOTHYROXINE NA 100 MCG TABLET (FP) PO SCH (06:39)
[2023-05-10] MEDS: INSULIN (LEVEMIR) 100 UNITS/ML UNITS SQ SCH ×2 (06:40→21:25)
[2023-05-10] MEDS: INSULIN ASPART SLIDING SCALE (NOVOLOG) 1 VIAL SQ SCH ×4 (06:53→21:26)
[2023-05-10 08:09] LABS: HEMATOCRIT 27.9 % (32.4-45.2); HEMOGLOBIN 8.7 GM/dL (10.7-15.3); MCH 26.6 pg (25.7-33.7); MEAN CELL VOLUME 85.7 fl (80-96); MEAN PLT VOLUME 8.7 fl (7.5-11.1); PLATELET COUNT 395 10^3/uL (134-434); RBC 3.26 M/mm3 (3.60-5.2); RDW 16.6 % (11.6-15.6)
[2023-05-10 08:22] LABS: POTASSIUM 4.6 mmol/L (3.5-5.1)
[2023-05-10 08:23] LABS: CALCIUM 9.1 mg/dL (8.5-10.1)
[2023-05-10 08:24] LABS: BLOOD UREA NITROGEN 40.2 mg/dL (7-18)
[2023-05-10 08:27] LABS: CREATININE 1.3 mg/dL (0.55-1.3)
[2023-05-10] MEDS: APIXABAN 5 MG TABLET PO SCH ×2 (09:32→21:24)
[2023-05-10] MEDS: ASPIRIN COATED 81 MG TABLET.EC PO SCH (09:32)
[2023-05-10] MEDS: POLYETHYLENE GLYCOL (HEALTHYLAX) 3350 17 GM PACKET PO SCH ×4 (09:32→21:39)
[2023-05-10] MEDS: NIFEdipine E.R. 90 MG TABLET PO SCH (09:32)
[2023-05-10] MEDS: TAMSULOSIN HCL 0.4 MG CAP PO SCH (09:32)
[2023-05-10] MEDS: NICOTINE 21 MG/24 HOURS TOPICAL PATCH TD SCH (09:33)
[2023-05-10] MEDS: LOSARTAN POTASSIUM 50 MG TABLET PO SCH (09:33)
[2023-05-10] MEDS: FLUTICASONE/UMECLIDIN/VILANTER(200-62.5-25 TRELEGY ELLIPTA) INAHLER IH SCH (09:38)
[2023-05-10 10:36] LABS: ANISOCYTOSIS 2+; MACROCYTOSIS 0; TARGET CELLS 1+
[2023-05-10] MEDS: oxyCODONE HCL 5 MG TABLET PO PRN ×2 (14:44→21:23)
[2023-05-10] MEDS: SENNOSIDES 8.6MG TABLET (FP) PO SCH ×3 (16:01→21:39)
[2023-05-10] MEDS: DOCUSATE SODIUM 100 MG CAPSULE (FP) PO SCH ×3 (16:02→21:39)
[2023-05-10] MEDS: ATORVASTATIN CA 10 MG TABLET (FP) PO SCH (21:24)
[2023-05-11] MEDS: GABAPENTIN 100 MG CAPSULE PO SCH ×3 (06:01→21:56)
[2023-05-11] MEDS: POLYETHYLENE GLYCOL (HEALTHYLAX) 3350 17 GM PACKET PO SCH ×3 (06:01→21:58)
[2023-05-11] MEDS: ACETAMINOPHEN 500 MG TABLET (FP) PO SCH ×3 (06:01→21:56)
[2023-05-11] MEDS: INSULIN (LEVEMIR) 100 UNITS/ML UNITS SQ SCH ×2 (06:02→21:57)
[2023-05-11] MEDS: DOCUSATE SODIUM 100 MG CAPSULE (FP) PO SCH ×3 (06:02→21:58)
[2023-05-11] MEDS: INSULIN ASPART SLIDING SCALE (NOVOLOG) 1 VIAL SQ SCH ×4 (06:02→21:57)
[2023-05-11] MEDS: LEVOTHYROXINE NA 100 MCG TABLET (FP) PO SCH (06:04)
[2023-05-11] MEDS ORDERED: INSULIN (LEVEMIR) 100 UNITS/ML UNITS SQ ONE (07:42)
[2023-05-11] MEDS ORDERED: INSULIN (NOVOLOG) ASPART 100 UNITS/ML 10ML VIAL ONE ×2 (07:42→21:07)
[2023-05-11 08:22] LABS: HEMATOCRIT 26.6 % (32.4-45.2); HEMOGLOBIN 8.4 GM/dL (10.7-15.3); MCHC 31.4 g/dl (32.0-36.0); MEAN CELL VOLUME 85.9 fl (80-96); MEAN PLT VOLUME 9.1 fl (7.5-11.1); PLATELET COUNT 397 10^3/uL (134-434); RBC 3.09 M/mm3 (3.60-5.2); RDW 16.5 % (11.6-15.6); WHITE BLOOD COUNT 21.6 K/mm3 (4.0-10.0)
[2023-05-11 08:24] LABS: POTASSIUM 4.7 mmol/L (3.5-5.1)
[2023-05-11 08:26] LABS: BLOOD UREA NITROGEN 41.9 mg/dL (7-18); CALCIUM 9.1 mg/dL (8.5-10.1)
[2023-05-11 08:29] LABS: CREATININE 1.4 mg/dL (0.55-1.3)
[2023-05-11 08:31] LABS: TOT PROT 4.8 g/dl (6.4-8.2)
[2023-05-11 08:37] LABS: BILIRUBIN,TOTAL 0.3 mg/dL (0.2-1)
[2023-05-11] MEDS: TAMSULOSIN HCL 0.4 MG CAP PO SCH (08:38)
[2023-05-11] MEDS: NIFEdipine E.R. 90 MG TABLET PO SCH (09:09)
[2023-05-11] MEDS: ASPIRIN COATED 81 MG TABLET.EC PO SCH (09:09)
[2023-05-11] MEDS: SENNOSIDES 8.6MG TABLET (FP) PO SCH ×2 (09:09→21:59)
[2023-05-11] MEDS: NICOTINE 21 MG/24 HOURS TOPICAL PATCH TD SCH (09:09)
[2023-05-11] MEDS: LOSARTAN POTASSIUM 50 MG TABLET PO SCH (09:09)
[2023-05-11] MEDS: FLUTICASONE/UMECLIDIN/VILANTER(200-62.5-25 TRELEGY ELLIPTA) INAHLER IH SCH (09:10)
[2023-05-11 09:35] LABS: ANISOCYTOSIS 0; HELMET CELLS 0; HOWELL-JOLLY BODIES 0; MACROCYTOSIS 0; OVALOCYTE 0; ROULEAU 0; SICKELED CELLS 0; TARGET CELLS 0; TEAR DROP CELLS 0; TOXIC GRANULATION 0
[2023-05-11] MEDS: guaiFENesin/D-METHORPHAN TAB.ER.12H PO SCH ×2 (11:59→21:58)
[2023-05-11] MEDS: oxyCODONE HCL 5 MG TABLET PO PRN (20:39)
[2023-05-11] MEDS: ATORVASTATIN CA 10 MG TABLET (FP) PO SCH (21:55)
[2023-05-12] MEDS: GABAPENTIN 100 MG CAPSULE PO SCH ×3 (06:30→22:15)
[2023-05-12] MEDS: ACETAMINOPHEN 500 MG TABLET (FP) PO SCH ×3 (06:30→22:14)
[2023-05-12] MEDS: POLYETHYLENE GLYCOL (HEALTHYLAX) 3350 17 GM PACKET PO SCH ×3 (06:31→22:05)
[2023-05-12] MEDS: DOCUSATE SODIUM 100 MG CAPSULE (FP) PO SCH ×3 (06:31→22:04)
[2023-05-12] MEDS: INSULIN (LEVEMIR) 100 UNITS/ML UNITS SQ SCH ×2 (06:31→22:14)
[2023-05-12] MEDS: INSULIN ASPART SLIDING SCALE (NOVOLOG) 1 VIAL SQ SCH ×4 (06:32→22:04)
[2023-05-12] MEDS ORDERED: INSULIN (NOVOLOG) ASPART 100 UNITS/ML 10ML VIAL ONE ×2 (07:24→11:22)
[2023-05-12] MEDS ORDERED: INSULIN (LEVEMIR) 100 UNITS/ML UNITS SQ ONE (07:25)
[2023-05-12 08:23] LABS: HEMATOCRIT 25.4 % (32.4-45.2); MCH 26.8 pg (25.7-33.7); MCHC 31.6 g/dl (32.0-36.0); MEAN CELL VOLUME 84.7 fl (80-96); MEAN PLT VOLUME 9.2 fl (7.5-11.1); PLATELET COUNT 390 10^3/uL (134-434); RDW 16.4 % (11.6-15.6); WHITE BLOOD COUNT 21.7 K/mm3 (4.0-10.0)
[2023-05-12 08:39] LABS: POTASSIUM 4.8 mmol/L (3.5-5.1)
[2023-05-12 08:41] LABS: CALCIUM 8.9 mg/dL (8.5-10.1)
[2023-05-12 08:42] LABS: ALBUMIN 2.1 g/dl (3.4-5.0); BLOOD UREA NITROGEN 43.2 mg/dL (7-18)
[2023-05-12 08:45] LABS: CREATININE 1.2 mg/dL (0.55-1.3)
[2023-05-12 08:46] LABS: BILIRUBIN,TOTAL 0.3 mg/dL (0.2-1); TOT PROT 4.8 g/dl (6.4-8.2)
[2023-05-12 09:07] LABS: ANISOCYTOSIS 1+; MACROCYTOSIS 1+
[2023-05-12] MEDS: oxyCODONE HCL 5 MG TABLET PO PRN ×2 (09:16→18:50)
[2023-05-12] MEDS: NIFEdipine E.R. 90 MG TABLET PO SCH (09:17)
[2023-05-12] MEDS: LOSARTAN POTASSIUM 50 MG TABLET PO SCH (09:17)
[2023-05-12] MEDS: TAMSULOSIN HCL 0.4 MG CAP PO SCH (09:17)
[2023-05-12] MEDS: SENNOSIDES 8.6MG TABLET (FP) PO SCH ×2 (09:17→22:14)
[2023-05-12] MEDS: LEVOTHYROXINE NA 100 MCG TABLET (FP) PO SCH (09:17)
[2023-05-12] MEDS: NICOTINE 21 MG/24 HOURS TOPICAL PATCH TD SCH (09:18)
[2023-05-12] MEDS: FLUTICASONE/UMECLIDIN/VILANTER(200-62.5-25 TRELEGY ELLIPTA) INAHLER IH SCH (09:24)
[2023-05-12] MEDS: ASPIRIN COATED 81 MG TABLET.EC PO SCH (09:25)
[2023-05-12] MEDS: guaiFENesin/D-METHORPHAN TAB.ER.12H PO SCH ×2 (09:25→22:15)
[2023-05-12] MEDS: ATORVASTATIN CA 10 MG TABLET (FP) PO SCH (22:15)
[2023-05-13] MEDS: DOCUSATE SODIUM 100 MG CAPSULE (FP) PO SCH ×3 (06:29→22:46)
[2023-05-13] MEDS: POLYETHYLENE GLYCOL (HEALTHYLAX) 3350 17 GM PACKET PO SCH ×3 (06:29→22:46)
[2023-05-13] MEDS: ACETAMINOPHEN 500 MG TABLET (FP) PO SCH ×2 (06:30→13:31)
[2023-05-13] MEDS: GABAPENTIN 100 MG CAPSULE PO SCH ×2 (06:32→13:31)
[2023-05-13] MEDS: INSULIN ASPART SLIDING SCALE (NOVOLOG) 1 VIAL SQ SCH ×4 (06:35→22:45)
[2023-05-13] MEDS: LEVOTHYROXINE NA 100 MCG TABLET (FP) PO SCH (07:06)
[2023-05-13 08:28] LABS: HEMATOCRIT 27.2 % (32.4-45.2); HEMOGLOBIN 8.5 GM/dL (10.7-15.3); MCH 26.9 pg (25.7-33.7); MCHC 31.2 g/dl (32.0-36.0); MEAN CELL VOLUME 86.3 fl (80-96); MEAN PLT VOLUME 9.3 fl (7.5-11.1); PLATELET COUNT 404 10^3/uL (134-434); RBC 3.15 M/mm3 (3.60-5.2); RDW 16.6 % (11.6-15.6)
[2023-05-13 08:55] LABS: POTASSIUM 4.4 mmol/L (3.5-5.1)
[2023-05-13 08:57] LABS: BLOOD UREA NITROGEN 36.6 mg/dL (7-18); CALCIUM 9.1 mg/dL (8.5-10.1)
[2023-05-13 08:58] LABS: ALBUMIN 2.2 g/dl (3.4-5.0)
[2023-05-13 09:02] LABS: BILIRUBIN,TOTAL 0.2 mg/dL (0.2-1); TOT PROT 4.9 g/dl (6.4-8.2)
[2023-05-13 09:04] LABS: CREATININE 1.2 mg/dL (0.55-1.3)
[2023-05-13] MEDS: LOSARTAN POTASSIUM 50 MG TABLET PO SCH (09:10)
[2023-05-13] MEDS: guaiFENesin/D-METHORPHAN TAB.ER.12H PO SCH (09:10)
[2023-05-13] MEDS: SENNOSIDES 8.6MG TABLET (FP) PO SCH ×2 (09:10→22:46)
[2023-05-13] MEDS: NICOTINE 21 MG/24 HOURS TOPICAL PATCH TD SCH (09:10)
[2023-05-13] MEDS: TAMSULOSIN HCL 0.4 MG CAP PO SCH (09:10)
[2023-05-13] MEDS: NIFEdipine E.R. 90 MG TABLET PO SCH (09:10)
[2023-05-13] MEDS: FLUTICASONE/UMECLIDIN/VILANTER(200-62.5-25 TRELEGY ELLIPTA) INAHLER IH SCH (09:12)
[2023-05-13] MEDS: ASPIRIN COATED 81 MG TABLET.EC PO SCH (09:22)
[2023-05-13 10:04] LABS: ANISOCYTOSIS 2+; MACROCYTOSIS 0
[2023-05-13] MEDS ORDERED: DEXTROSE 5%-LACTATED RINGERS 1,000 ML IV SCH ×2 (12:15→15:41)
[2023-05-13] MEDS ORDERED: MIDAZOLAM HCL 2 MG/2 ML SINGLE DOSE VIAL ONE (14:16)
[2023-05-13] MEDS ORDERED: PROPOFOL 20 ML ONE (14:16)
[2023-05-13] MEDS ORDERED: ceFAZolin SODIUM 1 GM VIAL IVPB ONE (15:10)
[2023-05-13] MEDS ORDERED: oxyCODONE HCL 5 MG TABLET PO PRN (15:31)
[2023-05-13] MEDS ORDERED: ONDANSETRON 4 MG/2 ML VIAL IVPUSH PRN ×2 (15:31→15:41)
[2023-05-13] MEDS: DEXTROSE 5%-LACTATED RINGERS 1,000 ML IV SCH ×3 (15:40→17:24)
[2023-05-13] MEDS ORDERED: BENZOCAINE/MENTH/CETYLPYRD CL 1 EACH LOZENGE MM PRN (15:41)
[2023-05-13] MEDS ORDERED: LACTATED RINGERS SOLUTION 1,000 ML IV SCH ×2 (15:45)
[2023-05-13] MEDS: INSULIN (LEVEMIR) 100 UNITS/ML UNITS SQ SCH ×2 (18:58→22:45)
[2023-05-14] MEDS ORDERED: LIDOCAINE 4% PATCH TP ONE (04:42)
[2023-05-14] MEDS ORDERED: INSULIN (NOVOLOG) ASPART 100 UNITS/ML 10ML VIAL ONE ×4 (06:02→20:42)
[2023-05-14] MEDS: LEVOTHYROXINE NA 100 MCG TABLET (FP) PO SCH (06:49)
[2023-05-14] MEDS: INSULIN ASPART SLIDING SCALE (NOVOLOG) 1 VIAL SQ SCH ×4 (06:50→21:17)
[2023-05-14] MEDS: INSULIN (LEVEMIR) 100 UNITS/ML UNITS SQ SCH ×2 (06:50→21:15)
[2023-05-14] MEDS: DOCUSATE SODIUM 100 MG CAPSULE (FP) PO SCH ×3 (06:50→21:16)
[2023-05-14] MEDS: POLYETHYLENE GLYCOL (HEALTHYLAX) 3350 17 GM PACKET PO SCH ×3 (06:50→21:16)
[2023-05-14] MEDS: SENNOSIDES 8.6MG TABLET (FP) PO SCH ×2 (09:49→21:17)
[2023-05-14] MEDS: FLUTICASONE/UMECLIDIN/VILANTER(200-62.5-25 TRELEGY ELLIPTA) INAHLER IH SCH (09:50)
[2023-05-14] MEDS: oxyCODONE HCL 5 MG TABLET PO PRN ×3 (11:20→22:57)
[2023-05-14] MEDS: LIDOCAINE PATCH REMOVAL MC SCH (21:17)
[2023-05-15] MEDS: POLYETHYLENE GLYCOL (HEALTHYLAX) 3350 17 GM PACKET PO SCH ×3 (05:21→22:20)
[2023-05-15] MEDS: DOCUSATE SODIUM 100 MG CAPSULE (FP) PO SCH ×3 (05:21→22:20)
[2023-05-15] MEDS: LEVOTHYROXINE NA 100 MCG TABLET (FP) PO SCH (06:10)
[2023-05-15] MEDS: INSULIN ASPART SLIDING SCALE (NOVOLOG) 1 VIAL SQ SCH ×4 (06:16→22:24)
[2023-05-15] MEDS: INSULIN (LEVEMIR) 100 UNITS/ML UNITS SQ SCH ×2 (06:16→22:24)
[2023-05-15] MEDS ORDERED: INSULIN (LEVEMIR) 100 UNITS/ML UNITS SQ ONE (06:39)
[2023-05-15] MEDS: oxyCODONE HCL 5 MG TABLET PO PRN ×2 (07:11→22:16)
[2023-05-15 07:39] LABS: BASO % 0.7 % (0-2.0); HEMATOCRIT 29.2 % (32.4-45.2); HEMOGLOBIN 8.9 GM/dL (10.7-15.3); LYMPH % 16.2 % (8-40); MCH 26.3 pg (25.7-33.7); MCHC 30.3 g/dl (32.0-36.0); MEAN CELL VOLUME 86.6 fl (80-96); MEAN PLT VOLUME 9.5 fl (7.5-11.1); MONO % 6.5 % (3.8-10.2); NEUT % 73.6 % (42.8-82.8); PLATELET COUNT 387 10^3/uL (134-434); RBC 3.38 M/mm3 (3.60-5.2); RDW 16.9 % (11.6-15.6); WHITE BLOOD COUNT 17.5 K/mm3 (4.0-10.0)
[2023-05-15 08:15] LABS: POTASSIUM 4.7 mmol/L (3.5-5.1)
[2023-05-15 08:32] LABS: ALBUMIN 2.3 g/dl (3.4-5.0); CALCIUM 9.5 mg/dL (8.5-10.1)
[2023-05-15 08:34] LABS: BLOOD UREA NITROGEN 34.5 mg/dL (7-18)
[2023-05-15 08:36] LABS: BILIRUBIN,TOTAL 0.3 mg/dL (0.2-1); CREATININE 1.2 mg/dL (0.55-1.3); TOT PROT 5.1 g/dl (6.4-8.2)
[2023-05-15] MEDS: SENNOSIDES 8.6MG TABLET (FP) PO SCH ×2 (11:57→22:20)
[2023-05-15] MEDS: FLUTICASONE/UMECLIDIN/VILANTER(200-62.5-25 TRELEGY ELLIPTA) INAHLER IH SCH (11:58)
[2023-05-15] MEDS: NIFEdipine E.R 60 MG TABLET PO SCH (17:15)
[2023-05-15] MEDS: HEPARIN NA (PORCINE) 5,000 UNITS/ML 1ML VIAL SQ SCH ×2 (17:15→22:24)
[2023-05-15] MEDS ORDERED: INSULIN (NOVOLOG) ASPART 100 UNITS/ML 10ML VIAL ONE (22:12)
[2023-05-15] MEDS: LIDOCAINE PATCH REMOVAL MC SCH (22:31)
[2023-05-16] MEDS: ACETAMINOPHEN 325 MG TABLET (FP) PO PRN ×2 (02:06→09:45)
[2023-05-16] MEDS: POLYETHYLENE GLYCOL (HEALTHYLAX) 3350 17 GM PACKET PO SCH ×2 (06:50→13:28)
[2023-05-16] MEDS: DOCUSATE SODIUM 100 MG CAPSULE (FP) PO SCH ×2 (06:50→13:26)
[2023-05-16] MEDS: INSULIN ASPART SLIDING SCALE (NOVOLOG) 1 VIAL SQ SCH ×2 (06:55→12:31)
[2023-05-16] MEDS: HEPARIN NA (PORCINE) 5,000 UNITS/ML 1ML VIAL SQ SCH ×2 (06:55→13:26)
[2023-05-16] MEDS: LEVOTHYROXINE NA 100 MCG TABLET (FP) PO SCH (06:56)
[2023-05-16 07:28] VITALS: RESP 18
[2023-05-16] MEDS: SENNOSIDES 8.6MG TABLET (FP) PO SCH (09:46)
[2023-05-16] MEDS: NIFEdipine E.R 60 MG TABLET PO SCH (09:46)
[2023-05-16] MEDS: FLUTICASONE/UMECLIDIN/VILANTER(200-62.5-25 TRELEGY ELLIPTA) INAHLER IH SCH (09:47)
[2023-05-16] MEDS: INSULIN (LEVEMIR) 100 UNITS/ML UNITS SQ SCH (10:51)
[2023-05-16] MEDS ORDERED: INSULIN (NOVOLOG) ASPART 100 UNITS/ML 10ML VIAL ONE ×2 (12:19→14:19)
[2023-05-16 15:23] VITALS: BP 146/59; PULSE 65; TEMP 98.6
== END 2023-05-16 15:33 | DRG 253 ==
LOC: JER 18:27 → JERBED 21:39 → J4S 04-29 03:17 → JICU 04-30 18:25 → J7W 05-02 20:49
PROVIDERS: ADMIT Internal Medicine; ATTEND Internal Medicine
PROC: B40DYZZ Plain Radiography of Aorta and Bilateral Lower Extremity Arteries using Other Contrast (ICD-10-PCS; 2023-04-29)
PROC: 041L0JL Bypass Left Femoral Artery to Popliteal Artery with Synthetic Substitute, Open Approach (ICD-10-PCS; principal; 2023-04-30 14:00)
PROC: 30233N1 Transfusion of Nonautologous Red Blood Cells into Peripheral Vein, Percutaneous Approach (ICD-10-PCS; 2023-05-04)
PROC: 0TJB8ZZ Inspection of Bladder, Via Natural or Artificial Opening Endoscopic (ICD-10-PCS; 2023-05-13)
DX: I77.1 Stricture of artery (principal); D62 Acute posthemorrhagic anemia; I99.8 Other disorder of circulatory system; C67.9 Malignant neoplasm of bladder, unspecified; I12.9 Hypertensive chronic kidney disease with stage 1 through stage 4 chronic kidney disease, or unspecified chronic kidney disease; E11.22 Type 2 diabetes mellitus with diabetic chronic kidney disease; I70.202 Unspecified atherosclerosis of native arteries of extremities, left leg; E11.65 Type 2 diabetes mellitus with hyperglycemia; J44.9 Chronic obstructive pulmonary disease, unspecified; E11.51 Type 2 diabetes mellitus with diabetic peripheral angiopathy without gangrene; N30.91 Cystitis, unspecified with hematuria; N18.9 Chronic kidney disease, unspecified; I25.10 Atherosclerotic heart disease of native coronary artery without angina pectoris; Z95.5 Presence of coronary angioplasty implant and graft; R74.01 Elevation of levels of liver transaminase levels; E03.9 Hypothyroidism, unspecified; D72.829 Elevated white blood cell count, unspecified; E78.5 Hyperlipidemia, unspecified
CPT/HCPCS: 0241U-QW; 36415; 36430; 71045-TC-FY; 71046-TC-FY; 71250-TC; 74176-TC; 76000-TC-FY; 80048; 80053; 80076; 81003; 82728; 82962; 83036; 83540; 83550; 83615; 83735; 84100; 84466; 85025; 85027; 85045; 85610; 85730; 86704; 86803; 86850; 86900; 86901; 86922; 87040; 87077; 87086; 87340; 87517; 88304-TC; 88311-TC; 93005; 93010; 93971-TC; 94010; 94760; 97116-GP; 97162-GP; 99285-25; C1757; C1768; G0480; J1644; P9058